=== PATIENT | female | born 1945 | race Caucasian/White ===

== ENCOUNTER 2017-02-02 19:08 | Inpatient (IN) | payer MEDICARE ==
[~2017-02-02 19:08] MED LIST: SUCCINYLCHOLINE CHLORIDE INJ 200 MG/10 ML VIAL ONE
[2017-02-02] MEDS ORDERED: PROPOFOL 100 ML IV ONE (19:15)
[2017-02-02] MEDS ORDERED: KETAMINE HCL INJ 500 MG/10 ML VIAL IV ONE (19:17)
[2017-02-02] MEDS ORDERED: PROPOFOL 100 ML IV PRN (19:17)
[2017-02-02] MEDS ORDERED: SUCCINYLCHOLINE CHLORIDE INJ 200 MG/10 ML VIAL IV ONE (19:18)
[2017-02-02] MEDS ORDERED: ETOMIDATE INJ/PF 20 MG/10 ML SDV IV ONE (19:18)
[2017-02-02] MEDS ORDERED: ALBUTEROL SULFATE 0.083% NEB 2.5 MG/3 ML AMPUL NEB ONE (19:20)
--- NOTE | 2017-02-02 19:25 | ER Document Report ---
ED Respiratory Problem - General Chief Complaint: Respiratory Distress Stated Complaint: RESPIRATORY DISTRESS Notes: The patient is a 71-year-old female, past medical history COPD, presents by EMS in severe respiratory distress. Her initial oxygen was in the 70s. She was given 2 g of magnesium, 3 duo nebs and Solu-Medrol by EMS. On arrival to the ER , the patient is very tachypneic and will not respond to painful stimulation. Decision was made to emergently intubate for airway protection. - Related Data Allergies/Adverse Reactions: codeine [Codeine] Allergy (Verified 10/14/12 21:58) Past Medical History - General Information source: Emergency Med Personnel Cannot obtain history due to: Unstable vital signs - Social History Smoking Status: Unknown if Ever Smoked Family History: Other - Unknown - Past Medical History Cardiac Medical History: Reports: Hx Hypertension Denies: Hx Congestive Heart Failure, Hx Heart Attack Pulmonary Medical History: Reports: Hx COPD Denies: Hx Tuberculosis GI Medical History: Reports: Hx Gastroesophageal Reflux Disease Past Surgical History: Denies: Hx Pacemaker - Immunizations Hx Diphtheria, Pertussis, Tetanus Vaccination: - unknown Review of Systems - Review of Systems -: Yes ROS unobtainable due to patient's medical condition Physical Exam - Vital signs Vitals: Temp Pulse Resp BP Pulse Ox 97.7 F 104 H 15 119/80 85 L 02/02/17 19:08 02/02/17 19:08 02/02/17 19:08 02/02/17 19:08 02/02/17 19:08 - Notes Notes: PHYSICAL EXAMINATION: GENERAL: Severe respiratory distress. No response to painful stimulation. HEAD: Atraumatic, normocephalic. EYES: Pupils equal round and reactive to light, extraocular movements intact, sclera anicteric, conjunctiva are normal. ENT: Blood in right nares and in oropharynx, NECK: Normal range of motion, supple without lymphadenopathy LUNGS: Severe respiratory distress, tachypnea, diffuse wheezing HEART: Regular rate and rhythm without murmurs ABDOMEN: Soft, nontender, normoactive bowel sounds. No guarding, no rebound. No masses appreciated. EXTREMITIES: Normal range of motion, no pitting or edema. No cyanosis. NEUROLOGICAL: Cranial nerves grossly intact. Normal speech, normal gait. Normal sensory, motor, and reflex exams. PSYCH: Normal mood, normal affect. SKIN: Warm, Dry, normal turgor, no rashes or lesions noted. Course - Re-evaluation Re-evalutation: Patient intubated immediately on arrival to the emergency room due to tachypnea and no mental status. Patient with diffuse wheezing and hypercapnic, hypoxic respiratory acidosis. Patient initially started on propofol drip until ketamine drip could be mixed. Her pressure dropped, but improved with fluids. Chest x-ray does not show any infiltrates. Patient with hyperkalemia up to 6.0 after succinylcholine administration. EKG does not show any hyperkalemic changes and renal function is normal. Will provide calcium, albuterol, Lasix and insulin to help with cardiac stabilization and potassium excretion. 02/02/17 23:[address] Berry and he has accepted patient to ICU. - Vital Signs Vital signs: Temp Pulse Resp BP Pulse Ox 96.6 F L 104 H 15 113/64 96 02/02/17 22:10 02/02/17 19:08 02/02/17 22:10 02/02/17 22:10 02/02/17 22:23 - Laboratory Result Diagrams: 02/02/17 19:15 02/02/17 19:15 Laboratory results interpreted by me: 02/02/17 02/02/17 02/02/17 19:15 19:15 19:15 MCHC 31.0 L Seg Neuts % (Manual) 41 L Lymphocytes % (Manual) 48 H Eosinophils % (Manual) 7 H Absolute Eos (Manual) 0.7 H Carbonic Acid ABG pH ABG pCO2 ABG pO2 ABG HCO3 ABG Total CO2 ABG O2 Saturation VBG pH 7.00 L* VBG pCO2 150.9 H* VBG HCO3 36.4 H Potassium 6.0 H* Carbon Dioxide 32 H Glucose 291 H Calcium 8.3 L AST 449 H ALT 261 H Total Protein 5.9 L Albumin 3.3 L 02/02/17 21:05 MCHC Seg Neuts % (Manual) Lymphocytes % (Manual) Eosinophils % (Manual) Absolute Eos (Manual) Carbonic Acid 2.40 H ABG pH 7.16 L* ABG pCO2 79.7 H* ABG pO2 519.3 H ABG HCO3 27.6 H ABG Total CO2 30.1 H ABG O2 Saturation 99.8 H VBG pH VBG pCO2 VBG HCO3 Potassium Carbon Dioxide Glucose Calcium AST ALT Total Protein Albumin - Diagnostic Test Radiology reviewed: Image reviewed, Reports reviewed Radiology results interpreted by me: CXR: No acute consolidation. ETT at level of thoracic inlet. - EKG Interpretation by Me EKG shows normal: Sinus rhythm Rate: Normal [place]/QRS: IVCD Voltage: Consistant with LVH When compared to previous EKG there are: No significant change Additional EKG results interpreted by me: No hyperkalemic changes. Procedures - Intubation Orotracheal Airway evaluation: Normal anatomy, Copious secretions - bloody Mallampati Classification: Class 3 Intubation method: Orotracheal Blade type: Marco Antonio Blade size: 4 ETT size: 7.0 ETT secured at: Teeth ETT secured at (cm): 22 Breath Sounds after Intubation: Equal End tidal CO2 confirmed: Yes Ventilator settings: PS FiO2: 80 Respirations: 8 Pressure support: 20 PEEP: 5 Post Intubation Xray: Yes Intubation Complications: No complications Critical Care Note - Critical Care Note Total time excluding time spent on procedures (mins): 45 Discharge - Discharge Clinical Impression: Acute respiratory failure with hypoxia and hypercapnia, COPD exacerbation, Elevated LFTs Condition: Critical Disposition: ADMITTED INPATIENT Admitting Provider: Hospitalist - [facility] Admitted: ICU
[2017-02-02 19:38] LABS: VENOUS BLOOD HCO3 36.4 mmol/L (20-32)
[2017-02-02 19:39] LABS: HEMATOCRIT 43.3 % (36.0-47.0); HEMOGLOBIN 13.4 g/dL (12.0-15.5); HGB HCT DIFFERENCE -3.1; MEAN CORPUSCULAR HEMOGLOBIN 27.8 pg (27.0-33.4); MEAN CORPUSCULAR VOLUME 90 fl (80-97); RED BLOOD COUNT 4.82 10^6/uL (3.72-5.28); RED CELL DISTRIBUTION WIDTH 13.7 % (11.5-14.0); WHITE BLOOD COUNT 9.3 10^3/uL (4.0-10.5)
[2017-02-02 19:47] LABS: PROTHROMBIN TIME 12.7 SEC (11.4-15.4)
[2017-02-02] MEDS ORDERED: FENTANYL CITRATE INJ/PF 100 MCG/2 ML AMPUL ONE (19:47)
[2017-02-02 19:50] LABS: VENOUS BLOOD PCO2 150.9 mmHg (35-63)
[2017-02-02 19:55] LABS: ALANINE AMINOTRANSFERASE 261 U/L (9-52); ALBUMIN 3.3 g/dL (3.5-5.0); ALKALINE PHOSPHATASE 92 U/L (38-126); ANION GAP 10 (5-19); ASPARTATE AMINO TRANSFERASE 449 U/L (14-36); BILIRUBIN,TOTAL 0.5 mg/dL (0.2-1.3); BLOOD UREA NITROGEN 14 mg/dL (7-20); CALCIUM 8.3 mg/dL (8.4-10.2); CARBON DIOXIDE 32 mmol/L (22-30); CHLORIDE 98 mmol/L (98-107); CREATINE KINASE 37 U/L (30-135); CREATININE RESULT 0.82 mg/dL (0.52-1.25); GLUCOSE 291 mg/dL (75-110); LIPASE 201.5 U/L (23-300); SODIUM 139.8 mmol/L (137-145); TOTAL PROTEIN 5.9 g/dL (6.3-8.2)
[2017-02-02 19:59] LABS: BASOPHILS % (MANUAL) 1 % (0-2); EOSINOPHILS % (MANUAL) 7 % (0-6); LYMPHOCYTES % (MANUAL) 48 % (13-45); TOTAL CELLS COUNTED 100
[2017-02-02 20:00] LABS: PLATELET CLUMPS PRESENT; RBC MORPHOLOGY COMMENT NORMO-CYTIC/CHROMIC; TOXIC GRANULATION SLIGHT; TOXIC VACUOLATION PRESENT
[2017-02-02] MEDS ORDERED: NORMAL SALINE 1000 ML 1,000 ML IV PRN (20:10)
[2017-02-02] MEDS ORDERED: FENTANYL CITRATE INJ/PF 100 MCG/2 ML AMPUL IV ONE ×2 (20:10→21:32)
[2017-02-02] MEDS ORDERED: INSULIN REG, HUMAN 100 UNIT/ML 3 ML VIAL (PYX) IV ONE (20:17)
[2017-02-02] MEDS ORDERED: CALCIUM GLUCONATE 1000 MG/10 ML INJ IV ONE (20:17)
--- NOTE | 2017-02-02 20:32 | EKG REPORT ---
SEVERITY:- ABNORMAL ECG - SINUS RHYTHM NONSPECIFIC INTRAVENTRICULAR CONDUCTION DELAY PROBABLE LVH WITH SECONDARY REPOL ABNRM : Confirmed by: Florecita Posadas MD 02-Feb-2017 20:31:48
[2017-02-02 21:21] LABS: ARTERIAL BLOOD BASE EXCESS -3.1 mmol/L; ARTERIAL BLOOD O2 SATURATION 99.8 % (94-98)
[2017-02-02] MEDS ORDERED: LEVOFLOXACIN 750 MG/D5W RTU 750 MG/150 ML RTUPB IV ONE (23:00)
[2017-02-02] MEDS ORDERED: FUROSEMIDE INJ/PF 40 MG/4 ML SDV IV ONE (23:02)
[2017-02-02] MEDS ORDERED: LACTULOSE SYRUP 20 GM/30 ML UDCUP NG ONE (23:05)
[2017-02-02] MEDS ORDERED: SODIUM POLYSTYRENE SULFONATE 15 GM/60 ML NG ONE (23:06)
[2017-02-02] MEDS ORDERED: CALCIUM GLUCONATE 1,000 MG in DEXTROSE 5%-WATER 50 ML IV ONE (23:06)
[2017-02-02] MEDS ORDERED: DEXTROSE 50%-WATER 25 GM/50 ML DISP.SYRIN IV PRN ×2 (23:07)
[2017-02-02] MEDS ORDERED: DEXTROSE 40% GEL 15 GM TUBE PO PRN ×2 (23:07)
[2017-02-02] MEDS ORDERED: INSULIN LISPRO 100 UNIT/ML 3 ML VIAL SUBCUT PRN (23:07)
[2017-02-02] MEDS ORDERED: GLUCAGON,HUMAN RECOMB 1 MG INJ IM PRN (23:07)
[2017-02-02] MEDS ORDERED: IPRATROPIUM/ALBUTEROL 0.5-2.5 MG/3 ML AMPUL NEB PRN (23:09)
[2017-02-02] MEDS ORDERED: ACETAMINOPHEN 325 MG TABLET NG PRN (23:09)
[2017-02-02] MEDS ORDERED: FENTANYL CITRATE INJ/PF 100 MCG/2 ML AMPUL IV PRN (23:18)
[2017-02-02] MEDS ORDERED: ASPIRIN 81 MG TABLET, CHEWABLE NG ONE (23:30)
[2017-02-03 00:37] LABS: ARTERIAL BLOOD BASE EXCESS -2.6 mmol/L; ARTERIAL BLOOD O2 SATURATION 98.3 % (94-98)
[2017-02-03] MEDS ORDERED: FENTANYL CITRATE INJ/PF 100 MCG/2 ML AMPUL ONE (01:40)
[2017-02-03] MEDS ORDERED: FENTANYL CITRATE INJ/PF 100 MCG/2 ML AMPUL IV PRN (01:46)
[2017-02-03 01:59] LABS: CREATINE KINASE MB 2.88 ng/mL (<4.55)
[2017-02-03 02:02] LABS: TROPONIN I 0.218 ng/mL
[2017-02-03] MEDS ORDERED: SODIUM POLYSTYRENE SULFONATE 15 GM/60 ML ONE (02:10)
[2017-02-03] MEDS ORDERED: FUROSEMIDE INJ/PF 40 MG/4 ML SDV ONE (02:11)
[2017-02-03] MEDS ORDERED: LORAZEPAM INJ 2 MG/1 ML VIAL ONE (02:22)
[2017-02-03] MEDS ORDERED: MORPHINE SULFATE 10 MG/ML INJ ONE ×2 (02:23→02:38)
[2017-02-03 02:28] LABS: HEMATOCRIT 39.4 % (36.0-47.0); HEMOGLOBIN 12.9 g/dL (12.0-15.5); HGB HCT DIFFERENCE -0.7; MEAN CORPUSCULAR HEMOGLOBIN 28.6 pg (27.0-33.4); MEAN CORPUSCULAR HGB CONC 32.8 g/dL (32.0-36.0); MEAN CORPUSCULAR VOLUME 87 fl (80-97); RED BLOOD COUNT 4.51 10^6/uL (3.72-5.28); RED CELL DISTRIBUTION WIDTH 13.7 % (11.5-14.0); WHITE BLOOD COUNT 12.3 10^3/uL (4.0-10.5)
[2017-02-03] MEDS ORDERED: ONDANSETRON HCL INJ/PF 4 MG/2 ML SDV IV PRN (02:32)
[2017-02-03] MEDS ORDERED: MORPHINE SULFATE 10 MG/ML INJ IV ONE (02:33)
[2017-02-03] MEDS ORDERED: LORAZEPAM INJ 2 MG/1 ML VIAL IV ONE (02:33)
[2017-02-03] MEDS ORDERED: MORPHINE SULFATE 10 MG/ML INJ IV PRN (02:33)
[2017-02-03] MEDS ORDERED: PANTOPRAZOLE SODIUM 40 MG VIAL IV ONE (02:36)
[2017-02-03] MEDS ORDERED: NORMAL SALINE 250 ML IV PRN ×2 (02:37)
[2017-02-03 02:40] LABS: ANION GAP 9 (5-19); BLOOD UREA NITROGEN 17 mg/dL (7-20); CALCIUM 8.4 mg/dL (8.4-10.2); CARBON DIOXIDE 25 mmol/L (22-30); CHLORIDE 106 mmol/L (98-107); CREATININE RESULT 0.71 mg/dL (0.52-1.25); GLUCOSE 181 mg/dL (75-110); POTASSIUM 5.2 mmol/L (3.6-5.0); SODIUM 140.4 mmol/L (137-145)
[2017-02-03] MEDS: IPRATROPIUM/ALBUTEROL 0.5-2.5 MG/3 ML AMPUL NEB SCH ×2 (02:41→11:00)
--- NOTE | 2017-02-03 04:02 | PDOC H&P/TRANSFER SUM ---
General Admission Date/PCP: 02/02/17 23:09 - Transfer Diagnosis (1) Acute respiratory failure with hypoxia and hypercapnia Current Visit: Yes Diagnosis Summary: Patient with history of COPD, anxiety on benzodiazepine, hypertension and GERD. presents after contacts EMS for acute shortness of breath noting oxygen saturation of 70% with bleeding about the nose and mouth. She received 2 g of magnesium, albuterol Atrovent and Solu-Medrol and brought to the emergency room for evaluation where she is found to be unresponsive to noxious stimuli. She is intubated without localization of source of bleeding. Her vital signs remain stable on propofol and referred to the hospitalist for admission. Ongoing workup reveals ABG hypercapnic respiratory failure with a PCO2 of 80, without significant AA gradient setting 100% on 50% FiO2. For hyperkalemia of 6 with peaked T waves she receives 2 g IV calcium gluconate , subcutaneous insulin and albuterol. Follow-up EKG concerning for complete loss of lateral T waves. First troponin returns 0.2 within normal CK and CK-MB. However oral pharyngeal bleeding continues and NG tube aspirate continues with 250ml of dark blood, and a started on IV Protonix bolus, ordered 2 units of pack red blood cells. Arrangements for transfer to tertiary care and intensive care given lack of subspecialty support of dive superintendent, ENT and GI. (2) GI bleed Current Visit: Yes Diagnosis Summary: Source of bleeding unclear retching results in 10 ML bright red blood in the oropharynx (3) Elevated troponin Current Visit: Yes Diagnosis Summary: Concern for evolving acute coronary syndrome given troponin of 0.2, nonspecific interventricular conduction delay and loss of lateral T waves. (4) Hyperkalemia Current Visit: Yes Diagnosis Summary: Patient's medication bag includes Aldactone, she is received 2 g of calcium gluconate, albuterol and insulin reevaluation of chemistry pending (5) COPD exacerbation Current Visit: Yes Diagnosis Summary: Hypercapnic respiratory failure complicated suspected tobacco dependence, Xanax and acute process, receiving ventilator support ABG verifies PCO2 reduction from 80-65. (6) Elevated LFTs Current Visit: Yes Diagnosis Summary: Unclear cause requires workup. Toxicology screen pending - Transfer Medications Home Medications: Alprazolam [Xanax 0.5 mg Tablet] 0.5 mg PO TID PRN 10/15/12 Aspirin [Aspirin 81 mg Chewable Tablet] 81 mg PO DAILY 10/15/12 Benazepril HCl [Lotensin 10 mg Tablet] 10 mg PO DAILY 10/15/12 Carvedilol [Coreg 6.25 mg Tablet] 6.25 mg PO BID 10/15/12 Fluticasone/Salmeterol [Advair 250-50 Diskus 14 Dose/Diskus] 1 inh IH DAILY 14/11 Furosemide [Lasix 20 mg Tablet] 20 mg PO 10/15/12 Omeprazole [Prilosec 40 mg Capsule] 40 mg PO DAILY 10/15/12 Paroxetine HCl [Paxil 20 mg Tablet] 20 mg PO DAILY 10/15/12 Spironolactone [Aldactone 25 mg Tablet] 25 mg PO DAILY 10/15/12 Transfer Medications: Current Medications Acetaminophen (Tylenol 325 Mg Tablet) 650 mg NG Q4HP PRN PRN Reason: pain or temp greater than 101F Stop: 03/04/17 23:08 Albuterol/Ipratropium (Duoneb 3 Ml Ampul) 3 ml NEB RTQ6 KAREN Stop: 03/05/17 01:59 Last Admin: 02/03/17 02:41 Dose: 3 ml Albuterol/Ipratropium (Duoneb 3 Ml Ampul) 3 ml NEB RTQ2HP PRN PRN Reason: SHORTNESS OF BREATH Stop: 03/04/17 23:08 Aspirin (Aspirin 81 Mg Chewable Tablet) 81 mg NG DAILY [facility] Stop: 03/05/17 09:59 Carvedilol (Coreg 6.25 Mg Tablet) 6.25 mg NG BID KAREN Stop: 03/05/17 09:59 Dextrose (Dextrose Inj 50% Syringe (25 Gm/50 Ml)) 12.5 gm IV PRN PRN; Protocol PRN Reason: FOR BG 50-69 IN ALERT PATIENT Stop: 03/04/17 23:06 Dextrose (Dextrose Inj 50% Syringe (25 Gm/50 Ml)) 25 gm IV PRN PRN PRN Reason: Protocol Stop: 03/04/17 23:06 Fentanyl Citrate (Sublimaze Inj/Pf 100 Mcg/2 Ml Ampule) 75 mcg IV Q4HP PRN PRN Reason: FOR PAIN Stop: 02/09/17 23:17 Glucagon (Glucagen Inj 1 Mg Vial) 1 mg IM PRN PRN; Protocol PRN Reason: Evaluate for BG < 70 Stop: 03/04/17 23:06 Glucose (Glutose 40% Gel 15 Gm Tube) 15 gm PO PRN PRN; Protocol PRN Reason: FOR BG 50-69 IN ALERT PATIENT Stop: 03/04/17 23:06 Glucose (Glutose 40% Gel 15 Gm Tube) 30 gm PO PRN PRN; Protocol PRN Reason: FOR BG < 50 IN ALERT PATIENT Stop: 03/04/17 23:06 Heparin Sodium (Porcine) (Heparin Inj 5,000 Units/Ml 1 Ml Syringe) 5,000 unit SUBCUT Q8 KAREN Stop: 03/05/17 05:59 Propofol (Diprivan Rtu 1000 Mg/100 Ml Inf.Bottle) 100 mls @ 0 mls/hr IV CONTINUOUS PRN; Protocol; Titrate PRN Reason: THIS MED IS NOT "PRN" Stop: 03/04/17 19:16 Last Admin: 02/02/17 19:59 Dose: 100 ml Sodium Chloride (Nacl 0.9% 1000 Ml Iv Soln) 1,000 mls @ 0 mls/hr IV X 2 BAGS PRN; Wide Open PRN Reason: THIS MED IS NOT "PRN" Last Admin: 02/02/17 22:06 Dose: 1,000 ml Levofloxacin/Dextrose (Levaquin Rtu 750 Mg/D5w 150 Ml Premix) 750 mg in 150 mls @ 100 mls/hr IV QHS [facility] Stop: 02/10/17 21:59 Sodium Chloride (Nacl 0.9% 250 Ml Iv Soln) 250 mls @ 30 mls/hr IV .DURING TRANSFUSION PRN PRN Reason: THIS MED IS NOT "PRN" Stop: 02/04/17 02:36 Sodium Chloride (Nacl 0.9% 250 Ml Iv Soln) 250 mls @ 0 mls/hr IV CONTINUOUS PRN ; As Directed PRN Reason: AFTER EACH UNIT Stop: 02/04/17 02:36 Insulin Human Lispro (Humalog Insulin 100 Unit/1 Ml 3 Ml Vial) 0 - 12 unit SUBCUT Q6HP PRN PRN Reason: Protocol Stop: 03/04/17 23:06 Morphine Sulfate (Morphine 10 Mg/Ml Inj) 5 mg IV Q4HP PRN Stop: 02/10/17 02:32 Ondansetron HCl (Zofran Inj/Pf 4 Mg/2 Ml Sdv) 4 mg IV Q4HP PRN Stop: 03/05/17 02:31 Sodium Chloride (Saline Flush 2.5 Ml Monoject Prefil Syrin) 2.5 ml IV Q8 KAREN Stop: 03/05/17 05:59 - Allergies Allergies/Adverse Reactions: codeine [Codeine] Allergy (Verified 10/14/12 21:58) History of Present Illness Admission Date/PCP: 02/02/17 23:09 Patient complains of: Shortness of breath with altered mental status History of Present Illness: STEPHANE HARDING is a 71 year old female with history of COPD, anxiety on benzodiazepine, hypertension and GERD. presents after contacts EMS for acute shortness of breath noting oxygen saturation of 70% with bleeding about the nose and mouth. She received 2 g of magnesium, albuterol Atrovent and Solu-Medrol and brought to the emergency room for evaluation where she is found to be unresponsive to noxious stimuli. She is intubated without localization of source of bleeding. Her vital signs remain stable on propofol and referred to the hospitalist for admission. Ongoing workup reveals ABG hypercapnic respiratory failure with a PCO2 of 80, without significant AA gradient setting 100% on 50% FiO2. For hyperkalemia of 6 with peaked T waves she receives 2 g IV calcium gluconate , subcutaneous insulin and albuterol. Follow-up EKG concerning for complete loss of lateral T waves. First troponin returns 0.2 within normal CK and CK-MB. However oral pharyngeal bleeding continues and NG tube aspirate continues with 250ml of dark blood, and a started on IV Protonix bolus, ordered 2 units of pack red blood cells. Arrangements for transfer to tertiary care and intensive care given lack of subspecialty support of dive superintendent, ENT and GI. Past Medical History Cardiac Medical History: Reports: Hypertension Denies: Congestive Heart Failure, Myocardial Infarction Pulmonary Medical History: Reports: Chronic Obstructive Pulmonary Disease (COPD) Denies: Tuberculosis GI Medical History: Reports: Gastroesophageal Reflux Disease Psychiatric Medical History: Reports: Tobacco Dependency Past Surgical History Past Surgical History: Denies: Pacemaker Social History Information Source: [facility] Records Lives with: Spouse/Significant other Smoking Status: Current Every Day Smoker Hx Recreational Drug Use: No Hx Prescription Drug Abuse: No - Advance Directive Resuscitation Status: Full Code Family History Family History: Other - Unknown Parental Family History Reviewed: Yes - unobtainable Children Family History Reviewed: Yes Sibling(s) Family History Reviewed.: Yes Review of Systems ROS unobtainable: Due to mental status - Intubated sedated Physical Exam Vital Signs: Temp Pulse Resp BP Pulse Ox 97.2 F 93 16 122/80 94 02/02/17 23:50 02/03/17 02:46 02/03/17 02:46 02/02/17 23:50 02/03/17 02:46 General appearance: PRESENT: cooperative, mild distress, other - Comfortable on ventilator. ABSENT: disheveled Head exam: PRESENT: atraumatic, normocephalic Eye exam: PRESENT: conjunctiva pink, EOMI, PERRLA. ABSENT: scleral icterus Ear exam: PRESENT: normal external ear exam Mouth exam: PRESENT: other - Bright red blood in the oropharynx dried with blood around the nose Neck exam: ABSENT: carotid bruit, JVD, lymphadenopathy, thyromegaly Respiratory exam: PRESENT: accessory muscle use, crackles, prolonged expiratory phas, symmetrical, tachypnea. ABSENT: chest wall tenderness, rales, retraction , rhonchi Cardiovascular exam: PRESENT: RRR. ABSENT: diastolic murmur, rubs, systolic murmur Pulses: PRESENT: normal dorsalis pedis pul Vascular exam: PRESENT: normal capillary refill GI/Abdominal exam: PRESENT: distended, hypoactive bowel sounds, normal bowel sounds, soft. ABSENT: guarding, mass, organolmegaly, rebound, tenderness Rectal exam: PRESENT: deferred Extremities exam: PRESENT: full ROM. ABSENT: calf tenderness, clubbing, pedal edema Neurological exam: PRESENT: other - Intubated and sedated. ABSENT: alert Psychiatric exam: PRESENT: other - Intubated Focused psych exam: PRESENT: other - Intubated Skin exam: PRESENT: dry, intact, warm. ABSENT: cyanosis, rash Results Laboratory Results: 02/03/17 01:15 02/03/17 01:15 02/02/17 02/03/17 02/03/17 23:42 01:15 01:15 WBC 12.3 H RBC 4.51 Hgb 12.9 Hct 39.4 MCV 87 MCH 28.6 MCHC 32.8 RDW 13.7 Plt Count 216 Carbonic Acid 1.96 H HCO3/H2CO3 Ratio 13:1 ABG pH 7.23 L ABG pCO2 65.2 H ABG pO2 144.0 H ABG HCO3 26.4 H ABG O2 Saturation 98.3 H ABG Base Excess -2.6 FiO2 50% Sodium 140.4 Potassium 5.2 H Chloride 106 Carbon Dioxide 25 Anion Gap 9 BUN 17 Creatinine 0.71 Est GFR ( Amer) > 60 Est GFR (Non-Af Amer) > 60 Glucose 181 H Calcium 8.4 02/03/17 02/03/17 01:15 01:15 Creatine Kinase 77 CK-MB (CK-2) 2.88 Troponin I 0.218 Impressions: Chest X-Ray 02/02/17 19:18 IMPRESSION: No acute consolidations or pleural effusions. Endotracheal tube with its tip at the level of the thoracic inlet. Other findings as noted above Head CT 02/02/17 19:19 IMPRESSION: No significant intracranial abnormalities were identified. Other findings as noted above. Assessment & Plan - Time Time Spent: Greater than 70 Minutes - Plan Summary Plan Summary: Patient requiring ongoing critical care and evaluation of bleeding from unclear source, without ENT, gastroenterology or dive superintendent she is graciously accepted By Dr Cavanuagh to tertiary care at [facility]. Given lack of subspecialty support
[2017-02-03 04:23] VITALS: BP 119/75
[2017-02-03] MEDS ORDERED: HEPARIN SOD (PORCINE) 5,000 UNIT/ML 1 ML SYRINGE SUBCUT SCH (06:00)
[2017-02-03] MEDS ORDERED: CARVEDILOL 6.25 MG TABLET NG SCH (10:00)
[2017-02-03] MEDS ORDERED: ASPIRIN 81 MG TABLET, CHEWABLE NG SCH (10:00)
--- NOTE | 2017-02-03 12:10 | EKG REPORT ---
SEVERITY:- ABNORMAL ECG - SINUS RHYTHM PROBABLE LEFT ATRIAL ABNORMALITY NONSPECIFIC INTRAVENTRICULAR CONDUCTION DELAY LVH WITH SECONDARY REPOLARIZATION ABNORMALITY : Confirmed by: Florecita Posadas MD 03-Feb-2017 12:09:26
[2017-02-03] MEDS ORDERED: LEVOFLOXACIN 750 MG/D5W RTU 750 MG/150 ML RTUPB IV SCH (22:00)
[2017-02-04] MEDS: IPRATROPIUM/ALBUTEROL 0.5-2.5 MG/3 ML AMPUL NEB SCH ×2 (02:49→02:50)
== END 2017-02-03 05:14 | disposition short-term general hospital (02) | DRG 208 ==
LOC: ER 19:08 → EH 23:09
PROVIDERS: ADMIT Internal Medicine; ATTEND Internal Medicine
PROC: 5A1935Z Respiratory Ventilation, Less than 24 Consecutive Hours (ICD-10-PCS; principal; 2017-02-02)
PROC: 0BH17EZ Insertion of Endotracheal Airway into Trachea, Via Natural or Artificial Opening (ICD-10-PCS; 2017-02-02)
DX: J96.01 Acute respiratory failure with hypoxia (principal); K92.2 Gastrointestinal hemorrhage, unspecified; J44.1 Chronic obstructive pulmonary disease with (acute) exacerbation; Z88.6 Allergy status to analgesic agent; F41.9 Anxiety disorder, unspecified; I10 Essential (primary) hypertension; K21.9 Gastro-esophageal reflux disease without esophagitis; J96.02 Acute respiratory failure with hypercapnia; E87.5 Hyperkalemia; F17.200 Nicotine dependence, unspecified, uncomplicated; Z79.899 Other long term (current) drug therapy; R74.8 Abnormal levels of other serum enzymes; Z79.82 Long term (current) use of aspirin
CPT/HCPCS: 36415; 36600; 70450; 71010; 80048; 80053; 80307; 82550; 82553; 82803; 83605; 83690; 84484; 85025; 85027; 85610; 85730; 86850; 86900; 86901; 86920; 93005; 93010; 94002; 94003; 96361; 96374; 99291; J0330; J0610; J1815; J1956; J2060; J2270; J2704; J3010; J3490; J7030; J7620; S0164